=== PATIENT | male | born 1975 | race Caucasian/White ===

== ENCOUNTER 2017-03-26 09:08 | Emergency (ER) | payer OTHER ==
[~2017-03-26] VITALS: Ht 177.8 cm; Wt 106.1 kg
--- NOTE | 2017-03-26 09:10 | NUR ---
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 PT AAO X4 AND AMBULATORY ON ARRIVAL PT HAS LAC #20 IV ACCESS SHIP JOINER
--- NOTE | 2017-03-26 09:10 | NUR ---
BBRA 102 FROM HOME FOR DIZZINESS AND CHEST TIGHTNESS SINCE THIS AM. 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
[2017-03-26] MEDS ORDERED: ONDANSETRON HCL/PF 4 MG/2 ML VIAL ONE (09:28)
[2017-03-26] MEDS ORDERED: MECLIZINE HCL 25 MG TABLET ONE ×2 (09:28→09:36)
[2017-03-26] MEDS ORDERED: MECLIZINE HCL 25 MG TABLET PO ONE (09:30)
[2017-03-26] MEDS ORDERED: ONDANSETRON HCL/PF - ER 4 MG/2 ML VIAL IV ONE (09:30)
[2017-03-26] MEDS ORDERED: LORAZEPAM INJ 2 MG/ML VIAL IV ONE ×2 (09:30→13:00)
[2017-03-26] MEDS ORDERED: IV NS 0.9% 1,000 ML BAG IV ONE (09:30)
--- NOTE | 2017-03-26 09:30 | NUR ---
PT TAKEN TO CT SCAN
[2017-03-26 09:50] LABS: BASOPHILS # (AUTO) 0.1 /CMM (0.0-0.2); BASOPHILS % (AUTO) 0.7 % (0.0-2.0); EOSINOPHILS # (AUTO) 0.8 /CMM (0.0-0.7); EOSINOPHILS % (AUTO) 7.2 % (0.0-6.0); HEMATOCRIT 39 % (39-51); HEMOGLOBIN 13.4 g/dL (13.5-17.5); LYMPHOCYTES # (AUTO) 2.3 /CMM (0.8-4.8); LYMPHOCYTES % (AUTO) 22.5 % (20.0-44.0); MEAN CORPUSCULAR HEMOGLOBIN 30 PG (26.0-33.0); MEAN CORPUSCULAR HGB CONC 34 g/dl (31.0-36.0); MEAN CORPUSCULAR VOLUME 87 fL (80-96); MONOCYTES # (AUTO) 0.7 /CMM (0.1-1.30); MONOCYTES % (AUTO) 6.7 % (2.0-12.0); NEUTROPHILS # (AUTO) 6.5 /CMM (1.8-8.9); NEUTROPHILS % (AUTO) 62.9 % (43.0-81.0); PLATELET COUNT (AUTO) 301 /CMM (150-450); RDW COEFFICIENT OF VARIATION 12.4 (11.5-15.0); WHITE BLOOD COUNT (AUTO) 10.4 K/uL (4.3-11.0)
--- NOTE | 2017-03-26 09:56 | NUR ---
PT MEDICATED ORDERED. FAMILY MEMBER AT BS.
[2017-03-26 10:06] LABS: INR 0.97 (0.87-1.13); PROTHROMBIN TIME 10.1 SECS (9.5-12.7)
[2017-03-26 10:09] LABS: ACETAMINOPHEN 6 ug/ml (10-30); ALANINE AMINOTRANSFERASE 27 U/L (12-78); ALBUMIN 3.8 g/dL (3.4-5.0); ALCOHOL, BLOOD < 3 mg/dL (0-0); ALKALINE PHOSPHATASE 45 U/L (46-116); ASPARTATE AMINOTRANSFERASE 40 U/L (15-37); BILIRUBIN,DIRECT 0.1 mg/dL (0.0-0.2); BILIRUBIN,TOTAL 0.3 mg/dL (0.2-1.0); CALCIUM, SERUM 8.2 mg/dL (8.5-10.1); CARBON DIOXIDE 25 mmol/L (21-32); CHLORIDE 105 mmol/L (98-107); CREATININE 0.8 mg/dL (0.6-1.3); GLUCOSE 119 mg/dL (74-106); POTASSIUM 3.9 mmol/L (3.5-5.1); SALICYLATE 4.1 mg/dL (2.8-20.0); SODIUM SERUM 137 mmol/L (136-145); TOTAL PROTEIN, SERUM 6.5 g/dL (6.4-8.2); UREA NITROGEN, BLOOD 14 mg/dL (7-18)
[2017-03-26 10:10] LABS: TROPONIN I < 0.017 ng/mL (0.00-0.056)
[2017-03-26] MEDS ORDERED: CEFTRIAXONE 1 G in IV D5W 50 ML IV ONE (12:00)
[2017-03-26] MEDS ORDERED: AZITHROMYCIN 500 MG in IV D5W 250 ML IV ONE (12:00)
[2017-03-26] MEDS ORDERED: CEFTRIAXONE 1GM BAG (ER ONLY) 50 ML IV ONE (12:00)
--- NOTE | 2017-03-26 12:05 | NUR ---
[facility] CALL [facility]. EXPECTING CALL BACK FROM DR Frank DIEGO.
--- NOTE | 2017-03-26 12:10 | NUR ---
PT NOTED AGITATED. TRYING TO STAND UP ON BED. NOTED FLIGHT OF THOUGHTS.
[2017-03-26 12:13] LABS: APPEARANCE,URINE Clear (CLEAR); BILIRUBIN,URINE Negative (NEGATIVE); BLOOD, URINE Negative Ery/uL (NEGATIVE); COLOR,URINE Yellow (YELLOW); KETONES,URINE Negative (NEGATIVE); LEUKOCYTE ESTERASE ,URINE Negative (NEGATIVE); NITRITE, URINE Negative (NEGATIVE); PROTEIN,URINE Negative (NEGATIVE); UGLUCOSE Negative (NEGATIVE); UROBILINOGEN,URINE 0.2 EU/dL (0.2)
--- NOTE | 2017-03-26 12:40 | NUR ---
PT ACCEPTED. WILL BE GOING TO [facility]. ACCEPTED BY DR Sandie MACIAS. NUMBER FOR REPORT [phone]. [facility] TRANSPORT, ETA 1316
--- NOTE | 2017-03-26 12:49 | NUR ---
CALLED [facility] NOTIFIED THEM THAT ER PHYSICIAN DR CHAVARRIA REQUESTS TO SPEAK WITH [facility] FOR PATIENT UPDATE.
--- NOTE | 2017-03-26 12:50 | NUR ---
REPORT GIVEN TO [facility] AND SPOKE TO BERONICA PRINCE.
[2017-03-26] MEDS ORDERED: ZIPRASIDONE MESYLATE 20 MG/VIAL VIAL IM ONE ×2 (12:51→13:00)
[2017-03-26] MEDS ORDERED: LORAZEPAM INJ 2 MG/ML VIAL ONE (12:51)
--- NOTE | 2017-03-26 13:15 | NUR ---
CALLED CLINICIAN [place] FOR EVAL
--- NOTE | 2017-03-26 13:15 | NUR ---
CALLED [facility] EDUC[facility] WITH [facility] TO [facility] TRANSPORT ON WILL CALL PENDING PT EVALUATION BY CLINICIAN
--- NOTE | 2017-03-26 13:55 | NUR ---
CALLED JERO WITH [facility] TO REARRANGE TRANSPORT TO [facility]
[2017-03-26 14:40] VITALS: BP 148/80
--- NOTE | 2017-03-26 15:11 | NUR ---
RECEIVED CALL FROM [facility] FOR [facility] 45 MINUTES
--- NOTE | 2017-03-26 16:31 | NUR ---
REPORT GIVEN TO [facility] FOR TRANSPORT TO [facility].
== END 2017-03-26 16:33 | disposition short-term general hospital (02) ==
LOC: ER 09:11
DX: J40 Bronchitis, not specified as acute or chronic (principal); F31.9 Bipolar disorder, unspecified
CPT/HCPCS: 36415; 70450-TC; 71010-TC; 80048-TC; 80076-TC; 80305; 81000-TC; 84484-TC; 85025-TC; 85730-TC; A4606; G0480; J0456; J0696; J2405; J7030; J7060; J8597; Z7610